=== PATIENT | female | born 1945 | race Caucasian/White ===

== ENCOUNTER 2018-07-20 10:31 | Inpatient (IN) | payer MEDICARE ==
[~2018-07-20] VITALS: Ht 165.1 cm; Wt 95.3 kg
[2018-07-20 13:00] VITALS: BP 122/50
--- NOTE | 2018-07-20 15:51 | PDOC1 ---
History and Physical Date of Admission Date of Admission DATE: 07/20/18 TIME: 15:51 Identification/Chief Complaint Chief Complaint TRANSFER FROM [facility] WITH MOD-SEVERE RUQ PAIN, INTRACTABLE NAUSEA, EMESIS , IMPROVED after transfer here, has poor appetite HAS hx gastritis, cholecystectomy CT ANGIOGRAM SUGGESTS LEFT RENAL LESION UNABLE TO TOLERATE FLUIDS OR SOLIDS Past Medical History Cardiovascular: CAD, HTN, Hyperlipidemia Pulmonary: COPD CENTRAL NERVOUS SYSTEM: Carpal Tunnel Syndrome GI: GERD, Other (DYSPHAGIA/COLON POLYP) Hepatobiliary: Cholelithiasis Musculoskeletal: Osteoarthritis Renal/: Chronic renal insuff Endocrine: Hypothyroidism Dermatology: Melanoma Past Surgical History Past Surgical History: Breast Biopsy, Cholecystectomy, Tonsillectomy Family History Family History: Cancer, Diabetes Family History: Parent Social History Smoke: <1 pack per day ALCOHOL: none Drugs: None Allergies Allergies: Coded Allergies: No Known Drug Allergies (Unverified , 07/20/18) ROS Review of System 14 PT ROS OTHERWISE NEG PSYCHOLOGICAL ROS: YES: Anxiety, Depression Eyes: No Blurry vision, No Decreased vision, No Double vision, No Dry eyes, No Excessive tearing, No Eye Pain, No Itchy Eyes, No Loss of vision, No Photophobia , No Scotomata, No Uses contacts, No Uses glasses, No Other Hematological and Lymphatic: No: Bleeding Problems, Blood Clots, Blood Transfusions, Brusing, Night Sweats, Pallor, Swollen Lymph Nodes, Other ENDOCRINE: No: Breast Changes, Galactorrhea, Hair Pattern Changes, Hot Flashes , Malaise/lethargy, Mood Swings, Palpitations, Polydipsia/polyuria, Skin Changes , Temperature Intolerance, Unexpected Weight Changes, Other Respiratory: YES: Cough Cardiovascular: No Chest Pain, No Palpitations, No Orthopnea, No Paroxysmal Noc. Dyspnea, No Edema, No Lt Headedness, No Other Gastrointestinal: Yes Nausea, Yes Vomiting, Yes Abdominal Pain Genitourinary: No Dysuria, No Frequency, No Incontinence, No Hematuria, No Retention, No Discharge, No Urgency, No Pain, No Flank Pain, No Other, No , No , No , No , No , No , No Physical Exam General: Alert, Oriented X3, Cooperative, mild distress HEENT: Atraumatic, PERRLA, EOMI Lungs: Clear to auscultation, Normal air movement Heart: S1S2, RRR Cardiovascular: S1, S2 Breasts: Not examined Abdomen: Normal bowel sounds (EPIGASTRIC TENDERNESS), Other Rectal Exam: not examined PELVIC: Examination not indicated Extremities: No clubbing, No cyanosis Skin: No breakdown Neuro: Normal speech, Strength at 5/5 X4 ext, Cranial nerves 3-12 NL Psych/Mental Status: Mental status NL, Mood NL Vitals Vitals Vital Signs Date Time Temp Pulse Resp B/P (MAP) Pulse Ox O2 Delivery O2 Flow Rate FiO2 07/20/18 13:00 97.7 73 18 122/50 (74) 93 Room Air 97.7 VTE Prophylaxis Ordered VTE Prophylaxis Devices: Yes VTE Pharmacological Prophylaxi: Yes Assessment/Plan Assessment/Plan impression 1. ruq pain 2. intractable abdominal pain 3, htn 4. hx gastritis 5. HYPOTHYROID STATE ON REPLACEMENT 6. LEFT RENAL LESION/ CYST VS MASS 7. INTRACTABLE NAUSEA 8. TOBACCO ABUSE plan 1, iv fluid support 2. iv protonix 3. GI CONSULT MAY NEED ENDOSCOPY 4. NPO 5. ABDOMINAL SONOGRAM 6. IV ZOFRAN 4 MG Q 4 HRS PRN 7. STOP TOBACCO USE NEEDED DVT PROPHYLAXIS CARLOTTA FRANK MD Jul 20, 2018 15:51
[2018-07-20] MEDS ORDERED: ACET500T68 PO (15:58)
[2018-07-20] MEDS ORDERED: ASPI81TA59 PO (15:58)
[2018-07-20] MEDS ORDERED: FURO20TA3 PO (15:59)
[2018-07-20] MEDS ORDERED: ONDANSETRON ODT 4 MG TAB.RAPDIS. PO PRN (16:00)
[2018-07-20] MEDS ORDERED: MORPHINE SULFATE 2 MG/ML VIAL. IV PRN (16:00)
[2018-07-20] MEDS ORDERED: ACETAMINOPHEN 500 MG TABLET PO PRN (16:15)
[2018-07-20] MEDS ORDERED: ONDANSETRON PF 4 MG/2 ML VIAL. IV PRN (16:30)
--- NOTE | 2018-07-20 16:36 | PDOC2 ---
GI CONSULT Reason For Consult: Abd pain > 3 months HPI: HPI: 73 y/o female who has been having abd pain for months. She saw Dr. Walsh earlier this week in his office and was admitted to [facility], then transferred here to [facility]. At [facility]: normal CBC except RDW 15.7, Cr 1.1 w/ normal BUN, normal LFTs and lipase , normal UA, neg fecal occult. D-dimer was a little elevated, no evidence of PE on CTA chest. CT A/P showed normal pancreas, left renal nodule, thickening of both adrenal glands, diverticulosis (extensive in sigmoid), moderate hiatal hernia. Pain comes and goes and is sharp, twisting, and gripping. Is starts int he epigastrium and goes to the right. Sometimes it wakes her during the night, sometimes it occurs during the day. Sometimes it makes her cough and then she starts vomiting but not always. Sometimes she can't stand up straight for awhile. H/o GERD on pantoprazole QD, some breakthrough reflux despite this. No dysphagia. Typically no diarrhea or constipation though had a loose stool yesterday. No hematemesis, hematochezia, or melena. Has gained weight though appetite has been less. S/p cholecystectomy ("it was disease"). No liver or pancreas history. No NSAIDs. Last EGD and colonoscopy by Dr. Whatley @ [facility] ~3-4 years ago, recalls being normal though at one point had colon polyps. PMH: PMH: CAD, ?CKD, fibrocystic breast disease, hypothyroidism, hysterectomy, appendectomy, tonsillectomy, lumpectomy x 3 (benign) FH: Family History: Cancer (father - pancreatic, brothers - prostate, sister - breast, aunt - unknown kind) Social History: Smoke: <1 pack per day ALCOHOL: none Drugs: None ROS: GEN: Denies fevers, chills, sweats HEENT: Denies blurred vision, sore throat CV: Denies chest pain RESP: Denies shortness of air, cough GI: Per HPI : Denies hematuria, dysuria ENDO: Denies weight changes NEURO: Denies confusion, dizziness MSK: Denies weakness, joint pain/swelling SKIN: Denies jaundice, pruritus Vitals: Vitals: Vital Signs Date Time Temp Pulse Resp B/P (MAP) Pulse Ox O2 Delivery O2 Flow Rate FiO2 07/20/18 13:00 97.7 73 18 122/50 (74) 93 Room Air 97.7 Allergies: Coded Allergies: No Known Drug Allergies (Unverified , 07/20/18) PE: GEN: NAD HEENT: Atraumatic, PERRL LUNGS: CTAB HEART: RRR ABD: NABS, S/ND, tender in epigastrium EXTREMITY: No edema SKIN: No rashes, no jaundice NEURO/PSYCH: A & O 3 A/P: A/P: Intermittent upper abd pain -twisting, sharp -occurs randomly, sometimes w/ n/v GERD -not totally controlled w/ PPI QD, last EGD 3-4 years ago w/ Dr. Whatley CRC screen, h/o polyps -says normal colonoscopy 3-4 years ago Diverticulosis S/p cholecystectomy FH pancreatic cancer -- D/w Dr. Russo - proceed w/ EGD tomorrow a.m. r/o paraesophageal hernia w/ intermittent obstruction. May need UGI, consideration for Leeanna fundoplication pending results. Agree w/ PPI. Could try clears tonight, NPO at midnight. Defer renal and adrenal findings to primary. NICOLE NEVILLE Jul 20, 2018 16:36
[2018-07-20] MEDS ORDERED: IV NORMAL SALINE 1000ML BAG 1,000 ML IV ONE (17:00)
[2018-07-20] MEDS: ALBUTEROL SULFATE 2.5 MG/3 ML NEBU. NEB SCH ×2 (17:00→20:00)
[2018-07-20] MEDS: IV 1/2 NORMAL SALINE 1,000 ML IV SCH (18:00)
[2018-07-20 19:00] VITALS: BP 107/42
[2018-07-20 23:00] VITALS: BP 94/39
[2018-07-21 03:00] VITALS: BP 121/56
[2018-07-21 05:31] LABS: BASO # 0.1 x10^3/uL (0.0-0.2); BASO % 1 % (0-3); EOS # 0.1 x10^3/uL (0.0-0.7); EOS % 2 % (0-3); HEMATOCRIT 40.3 % (36.0-47.0); HEMOGLOBIN 13.1 g/dL (12.0-15.5); LYMPH % 26 % (24-48); MEAN CORPUSCULAR HEMOGLOBIN 28 pg (25-35); MEAN CORPUSCULAR HGB CONC 33 g/dL (31-37); MEAN CORPUSCULAR VOLUME 86 fL (79-100); MONO # 0.6 x10^3/uL (0.0-1.1); MONO % 8 % (0-9); NEUT # 4.8 x10^3uL (1.8-7.7); NEUT % 63 % (31-73); PLATELET COUNT 248 x10^3/uL (140-400); RED BLOOD COUNT 4.71 x10^6/uL (3.50-5.40); RED CELL DISTRIBUTION WIDTH 15.4 % (11.5-14.5); WHITE BLOOD COUNT 7.7 x10^3/uL (4.0-11.0)
[2018-07-21 05:58] LABS: ALBUMIN 3.4 g/dL (3.4-5.0); CALCIUM 8.3 mg/dL (8.5-10.1); CREATININE 1.1 mg/dL (0.6-1.0); GFR 48.4; POTASSIUM 3.6 mmol/L (3.5-5.1); TOTAL BILIRUBIN 0.5 mg/dL (0.2-1.0); TOTAL PROTEIN 6.8 g/dL (6.4-8.2)
[2018-07-21 07:00] VITALS: BP 106/47
[2018-07-21] MEDS ORDERED: LEVOTHYROXINE 150 MCG TABLET PO SCH ×2 (07:00)
[2018-07-21] MEDS ORDERED: PANTOPRAZOLE 40 MG TABLET.DR. PO SCH (07:30)
[2018-07-21] MEDS ORDERED: PANTOPRAZOLE IV PUSH 40 MG VIAL. IVP SCH (07:30)
[2018-07-21] MEDS ORDERED: ASPIRIN CHEWABLE 81 MG TABLET. PO SCH (08:00)
[2018-07-21] MEDS: IV 1/2 NORMAL SALINE 1,000 ML IV SCH (08:19)
--- NOTE | 2018-07-21 08:23 | RAD ---
Abdominal ultrasound, 07/21/2018: HISTORY: Pain, left renal mass on CT The gallbladder is surgically absent. There is no evidence of a hepatic mass or bile duct dilatation. The visualized portions of the pancreas are unremarkable. The spleen is of normal size. There is calcific plaquing of the abdominal aorta without evidence of aneurysm. Inferior vena cava is unremarkable. No free fluid is evident in the abdomen. The kidneys are of normal size. There is a 1.6 cm hypoechoic nodule present arising from the lateral margin of the left kidney. There are faint low level internal echoes. There is a linear echogenic structure internally suggesting a small septation. There is no definite posterior acoustic enhancement or shadowing. The kidneys are otherwise unremarkable. IMPRESSION: 1. Status post cholecystectomy. 2. Small left renal nodule which is most likely a septated cyst. A solid mass cannot be excluded. MR scanning may be useful for further evaluation. Sonographic or CT surveillance would be a reasonable alternative. 3. No acute abdominal abnormality is detected. Electronically signed by: Ronnie Madera MD (07/21/2018 8:20 AM) [facility]
[2018-07-21] MEDS: ALBUTEROL SULFATE 2.5 MG/3 ML NEBU. NEB SCH ×2 (08:27→12:42)
[2018-07-21] MEDS ORDERED: buPROPion XL 150 MG TAB.ER.24H. PO SCH ×2 (09:00)
[2018-07-21] MEDS ORDERED: FUROSEMIDE 20 MG TABLET PO SCH ×2 (09:00)
[2018-07-21] MEDS ORDERED: IV RINGERS,LACTATED 1000ML 1,000 ML IV SCH (10:15)
--- NOTE | 2018-07-21 11:13 | PDOC4 ---
Operative Note Operative Note EGD with biopsy Meds propofol per anesthesia Pre-op dx abd pain s/p uyen Post-op dx gastritis s/p bx Plan advance diet and release if tolerates o/p UGi series with SBFT if able to tolerate po COSMO LOWE MD Jul 21, 2018 11:12
[2018-07-21] MEDS ORDERED: PROPOFOL 20 ML IV ONE (11:19)
[2018-07-21] MEDS ORDERED: LIDOCAINE 2% PF Vial for OR 5 ML VIAL. ONE (11:19)
--- NOTE | 2018-07-21 11:42 | PDOC ---
PROGRESS NOTES Chief Complaint Chief Complaint RUQ pain Intractable abdominal pain HTN Hx gastritis Hypothyroid states on replacement Left renal lesion Intractable nausea Tobacco use History of Present Illness History of Present Illness Pt seen and examined in EGD room post procedure Dw Dr. Russo - recommends outpt follow up Pt denies pain and nausea VSS Vitals Vitals Vital Signs Date Time Temp Pulse Resp B/P (MAP) Pulse Ox O2 Delivery O2 Flow Rate FiO2 07/21/18 11:24 66 20 116/53 93 Nasal Cannula 2 07/21/18 11:09 97.9 97.9 Physical Exam General: Alert, Oriented X3, Cooperative, No acute distress Heart: Regular rate, No murmurs Lungs: Clear Abdomen: Normal bowel sounds, No tenderness Extremities: No clubbing, No cyanosis Skin: No rashes, No breakdown Labs LABS Laboratory Tests Test 07/21/18 03:39 White Blood Count 7.7 x10^3/uL (4.0-11.0) Red Blood Count 4.71 x10^6/uL (3.50-5.40) Hemoglobin 13.1 g/dL (12.0-15.5) Hematocrit 40.3 % (36.0-47.0) Mean Corpuscular Volume 86 fL (79-100) Mean Corpuscular Hemoglobin 28 pg (25-35) Mean Corpuscular Hemoglobin Concent 33 g/dL (31-37) Red Cell Distribution Width 15.4 % (11.5-14.5) Platelet Count 248 x10^3/uL (140-400) Neutrophils (%) (Auto) 63 % (31-73) Lymphocytes (%) (Auto) 26 % (24-48) Monocytes (%) (Auto) 8 % (0-9) Eosinophils (%) (Auto) 2 % (0-3) Basophils (%) (Auto) 1 % (0-3) Neutrophils # (Auto) 4.8 x10^3uL (1.8-7.7) Lymphocytes # (Auto) 2.0 x10^3/uL (1.0-4.8) Monocytes # (Auto) 0.6 x10^3/uL (0.0-1.1) Eosinophils # (Auto) 0.1 x10^3/uL (0.0-0.7) Basophils # (Auto) 0.1 x10^3/uL (0.0-0.2) Sodium Level 142 mmol/L (136-145) Potassium Level 3.6 mmol/L (3.5-5.1) Chloride Level 107 mmol/L (98-107) Carbon Dioxide Level 27 mmol/L (21-32) Anion Gap 8 (6-14) Blood Urea Nitrogen 10 mg/dL (7-20) Creatinine 1.1 mg/dL (0.6-1.0) Estimated GFR (Cockcroft-Gault) 48.4 BUN/Creatinine Ratio 9 (6-20) Glucose Level 90 mg/dL (70-99) Calcium Level 8.3 mg/dL (8.5-10.1) Total Bilirubin 0.5 mg/dL (0.2-1.0) Aspartate Amino Transf (AST/SGOT) 7 U/L (15-37) Alanine Aminotransferase (ALT/SGPT) 15 U/L (14-59) Alkaline Phosphatase 85 U/L (46-116) Total Protein 6.8 g/dL (6.4-8.2) Albumin 3.4 g/dL (3.4-5.0) Albumin/Globulin Ratio 1.0 (1.0-1.7) Review of Systems Review of Systems Denies pain Denies nausea Assessment and Plan Assessmemt and Plan RUQ pain Intractable abdominal pain HTN Hx gastritis Hypothyroid states on replacement Left renal lesion Intractable nausea Tobacco use Plan: Home meds Advance diet Follow up outpt with GI Follow up outpt with Probable D/C to home today Comment Review of Relevant I have reviewed the following items blaise (where applicable) has been applied. Labs Laboratory Tests Test 07/21/18 03:39 White Blood Count 7.7 x10^3/uL (4.0-11.0) Red Blood Count 4.71 x10^6/uL (3.50-5.40) Hemoglobin 13.1 g/dL (12.0-15.5) Hematocrit 40.3 % (36.0-47.0) Mean Corpuscular Volume 86 fL (79-100) Mean Corpuscular Hemoglobin 28 pg (25-35) Mean Corpuscular Hemoglobin Concent 33 g/dL (31-37) Red Cell Distribution Width 15.4 % (11.5-14.5) Platelet Count 248 x10^3/uL (140-400) Neutrophils (%) (Auto) 63 % (31-73) Lymphocytes (%) (Auto) 26 % (24-48) Monocytes (%) (Auto) 8 % (0-9) Eosinophils (%) (Auto) 2 % (0-3) Basophils (%) (Auto) 1 % (0-3) Neutrophils # (Auto) 4.8 x10^3uL (1.8-7.7) Lymphocytes # (Auto) 2.0 x10^3/uL (1.0-4.8) Monocytes # (Auto) 0.6 x10^3/uL (0.0-1.1) Eosinophils # (Auto) 0.1 x10^3/uL (0.0-0.7) Basophils # (Auto) 0.1 x10^3/uL (0.0-0.2) Sodium Level 142 mmol/L (136-145) Potassium Level 3.6 mmol/L (3.5-5.1) Chloride Level 107 mmol/L (98-107) Carbon Dioxide Level 27 mmol/L (21-32) Anion Gap 8 (6-14) Blood Urea Nitrogen 10 mg/dL (7-20) Creatinine 1.1 mg/dL (0.6-1.0) Estimated GFR (Cockcroft-Gault) 48.4 BUN/Creatinine Ratio 9 (6-20) Glucose Level 90 mg/dL (70-99) Calcium Level 8.3 mg/dL (8.5-10.1) Total Bilirubin 0.5 mg/dL (0.2-1.0) Aspartate Amino Transf (AST/SGOT) 7 U/L (15-37) Alanine Aminotransferase (ALT/SGPT) 15 U/L (14-59) Alkaline Phosphatase 85 U/L (46-116) Total Protein 6.8 g/dL (6.4-8.2) Albumin 3.4 g/dL (3.4-5.0) Albumin/Globulin Ratio 1.0 (1.0-1.7) Laboratory Tests Test 07/21/18 03:39 White Blood Count 7.7 x10^3/uL (4.0-11.0) Red Blood Count 4.71 x10^6/uL (3.50-5.40) Hemoglobin 13.1 g/dL (12.0-15.5) Hematocrit 40.3 % (36.0-47.0) Mean Corpuscular Volume 86 fL (79-100) Mean Corpuscular Hemoglobin 28 pg (25-35) Mean Corpuscular Hemoglobin Concent 33 g/dL (31-37) Red Cell Distribution Width 15.4 % (11.5-14.5) Platelet Count 248 x10^3/uL (140-400) Neutrophils (%) (Auto) 63 % (31-73) Lymphocytes (%) (Auto) 26 % (24-48) Monocytes (%) (Auto) 8 % (0-9) Eosinophils (%) (Auto) 2 % (0-3) Basophils (%) (Auto) 1 % (0-3) Neutrophils # (Auto) 4.8 x10^3uL (1.8-7.7) Lymphocytes # (Auto) 2.0 x10^3/uL (1.0-4.8) Monocytes # (Auto) 0.6 x10^3/uL (0.0-1.1) Eosinophils # (Auto) 0.1 x10^3/uL (0.0-0.7) Basophils # (Auto) 0.1 x10^3/uL (0.0-0.2) Sodium Level 142 mmol/L (136-145) Potassium Level 3.6 mmol/L (3.5-5.1) Chloride Level 107 mmol/L (98-107) Carbon Dioxide Level 27 mmol/L (21-32) Anion Gap 8 (6-14) Blood Urea Nitrogen 10 mg/dL (7-20) Creatinine 1.1 mg/dL (0.6-1.0) Estimated GFR (Cockcroft-Gault) 48.4 BUN/Creatinine Ratio 9 (6-20) Glucose Level 90 mg/dL (70-99) Calcium Level 8.3 mg/dL (8.5-10.1) Total Bilirubin 0.5 mg/dL (0.2-1.0) Aspartate Amino Transf (AST/SGOT) 7 U/L (15-37) Alanine Aminotransferase (ALT/SGPT) 15 U/L (14-59) Alkaline Phosphatase 85 U/L (46-116) Total Protein 6.8 g/dL (6.4-8.2) Albumin 3.4 g/dL (3.4-5.0) Albumin/Globulin Ratio 1.0 (1.0-1.7) Medications Current Medications Furosemide (Lasix) 20 mg DAILY PO ; Start 07/21/18 at 09:00 Sodium Chloride 1,000 ml @ 75 mls/hr [id number] IV Last administered on at 08:19; Start 07/20/18 at 18:00 Levothyroxine Sodium (Synthroid) 150 mcg DAILY07 PO ; Start 07/21/18 at 07:00 Morphine Sulfate (Morphine Sulfate) 2 mg PRN Q2HR PRN IV PAIN; Start 07/20/18 at 16:00 Ondansetron HCl (Zofran Odt) 4 mg PRN Q6HRS PRN PO NAUSEA/VOMITING; Start 07/20 at 16:00 Pantoprazole Sodium (Protonix) 40 mg DAILYAC PO ; Start 07/21/18 at 07:30; Status Cancel Bupropion HCl (Wellbutrin Xl) 150 mg DAILY PO ; Start 07/21/18 at 09:00 Acetaminophen (Tylenol) 650 mg PRN Q6HRS PRN PO PAIN; Start 07/20/18 at 16:15 Aspirin (Children'S Aspirin) 81 mg DAILY08 PO ; Start 07/21/18 at 08:00 Furosemide (Lasix) 20 mg DAILY PO ; Start 07/21/18 at 09:00; Status UNV Pantoprazole Sodium (PROTONIX VIAL for IV PUSH) 40 mg DAILYAC IVP Last administered on 07/21/18at 08:23; Start 07/21/18 at 07:30 Bupropion HCl (Wellbutrin Xl) 150 mg DAILY PO ; Start 07/21/18 at 09:00; Status UNV Ondansetron HCl (Zofran) 4 mg PRN Q6HRS PRN IV NAUSEA/VOMITING; Start 07/20/18 at 16:30 Levothyroxine Sodium (Synthroid) 150 mcg DAILY07 PO ; Start 07/21/18 at 07:00; Status UNV Albuterol Sulfate (Ventolin Neb Soln) 2.5 mg RTQID NEB Last administered on at 08:27; Start 07/20/18 at 17:00 Sodium Chloride 1,000 ml @ 100 mls/hr 1X ONCE IV Last administered on at 17:00; Start 07/20/18 at 17:00; Stop 07/21/18 at 02:59; Status DC Ringer's Solution 1,000 ml @ 100 mls/hr Q10H IV Last administered on at 10:15; Start 07/21/18 at 10:15 Propofol 20 ml @ As Directed STK-MED ONCE IV ; Start 07/21/18 at 11:19; Stop at 11:20; Status DC Lidocaine HCl (Lidocaine Pf 2% Vial) 5 ml STK-MED ONCE .ROUTE ; Start 07/21/18 at 11:19; Stop 07/21/18 at 11:20; Status DC Active Scripts Active Reported Furosemide 20 Mg Tablet 20 Mg PO DAILY Children's Aspirin (Aspirin) 81 Mg Tab.chew 81 Mg PO DAILY08 Acetaminophen 500 Mg Tablet 650 Mg PO PRN Q6HRS PRN Vitals/I & O Vital Sign - Last 24 Hours 07/20/18 07/20/18 07/20/18 07/20/18 13:00 14:00 17:32 19:00 Temp 97.7 97.9 97.7 97.9 Pulse 73 79 Resp 18 18 B/P (MAP) 122/50 (74) 107/42 (63) Pulse Ox 93 96 91 O2 Delivery Room Air Room Air Room Air Room Air 07/20/18 07/20/18 07/20/18 07/21/18 20:00 20:15 23:00 03:00 Temp 98.6 97.9 98.6 97.9 Pulse 78 70 Resp 18 18 B/P (MAP) 94/39 (57) 121/56 (77) Pulse Ox 97 94 95 O2 Delivery Room Air Room Air Room Air Room Air 07/21/18 07/21/18 07/21/18 07/21/18 07:00 08:15 08:28 10:07 Temp 98.5 98.1 98.5 98.1 Pulse 71 72 Resp 18 20 B/P (MAP) 106/47 (66) Pulse Ox 93 94 O2 Delivery Room Air Room Air Room Air 07/21/18 07/21/18 07/21/18 10:09 11:09 11:24 Temp 97.9 97.9 Pulse 68 66 Resp 16 20 B/P (MAP) 133/57 116/53 Pulse Ox 98 93 O2 Delivery Room Air Simple Mask Nasal Cannula O2 Flow Rate 10 2 Intake and Output 07/20/18 07/20/18 07/21/18 15:00 23:00 07:00 Intake Total 240 ml 120 ml Output Total 300 ml Balance -60 ml 120 ml TRUDY ESQUIVEL III DO Jul 21, 2018 11:42
[2018-07-21 12:15] VITALS: BP 145/71
[2018-07-21 12:30] VITALS: BP 134/57
[2018-07-21 12:45] VITALS: BP 122/31
[2018-07-21 13:00] VITALS: BP 110/43
[2018-07-21] MEDS ORDERED: LEVO150T5 PO (13:17)
--- NOTE | 2018-07-21 19:22 | DS ---
DATE OF DISCHARGE: 07/21/2018 ADMISSION DIAGNOSIS: Abdominal pain. DISCHARGE DIAGNOSIS: Resolving abdominal pain. HOSPITAL COURSE: The patient is a pleasant 73-year-old female, who presented with abdominal pain. She was admitted. We consulted GI. She got an EGD. I saw the patient in the EGD area this morning, and Dr. Russo was just finishing up. He states that he did not see a whole lot. He did take some biopsies. He is okay with her going home. We plan to discharge her this afternoon. DISPOSITION: Home. ACTIVITY: As tolerated. DIET: Low sodium. MEDICATIONS: Please see the MRAD. TOTAL TIME ON DISCHARGE: 38 minutes. TRUDY ESQUIVEL DO DR: ED/rose JOB#: [id number] / [id number]
--- NOTE | 2018-07-25 16:08 | PATHOLOGY ---
[facility] Accession Number: [id number] . 01 Material submitted: . GASTRIC BIOPSY . 01 Clinical history: . Abdominal pain . 02 Diagnosis: Gastric biopsies: - Mild active chronic gastritis with focal intestinal metaplasia. [facility]/07/25/2018 . 02 Comment: Sections of the gastric biopsy reveal segments of gastric antral and gastroduodenal mucosa showing focal active mild chronic inflammation with focal intestinal metaplasia. A properly controlled immunoperoxidase stain for H. pylori is negative for Helicobacter organisms. There is no evidence of malignancy. (JPM:[facility] 07/25/2018) . Special stain performed: Immunoperoxidase for Helicobacter . 02 Electronically signed: . Tye Del Castillo MD, Pathologist NPI- [id number] . 01 Gross description: . Received in formalin labeled "Swindol, Jenae, gastric BX's," are 5 segments of ventura soft tissue measuring 0.9 x 0.6 x 0.2 cm in aggregate dimensions and ranging from 0.2 to 0.4 cm in maximum dimension. The specimen is submitted entirely in cassette A1. ([facility]; 07/21/2018) TOB/TOB . 02 Pathologist provided ICD-10: K29.50 . 02 CPT . 384495, [id number] Performed at: 01 [facility] [address], [place], [place] [id number] MD Jesse Chow MD Phone: [phone] Performed at: 02 [facility] [address], [place] [id number] MD Tye Del Castillo MD Phone: [phone]
== END 2018-07-21 14:10 | disposition home or self-care (01) | DRG 392 ==
LOC: 4 NORTH 13:17
PROVIDERS: ADMIT Internal Medicine; ATTEND Internal Medicine
PROC: 0DB68ZX Excision of Stomach, Via Natural or Artificial Opening Endoscopic, Diagnostic (ICD-10-PCS; principal; 2018-07-21 11:00)
DX: K29.70 Gastritis, unspecified, without bleeding (principal); K21.9 Gastro-esophageal reflux disease without esophagitis; J44.9 Chronic obstructive pulmonary disease, unspecified; E03.9 Hypothyroidism, unspecified; E78.5 Hyperlipidemia, unspecified; I12.9 Hypertensive chronic kidney disease with stage 1 through stage 4 chronic kidney disease, or unspecified chronic kidney disease; I25.10 Atherosclerotic heart disease of native coronary artery without angina pectoris; K57.30 Diverticulosis of large intestine without perforation or abscess without bleeding; G56.00 Carpal tunnel syndrome, unspecified upper limb; M19.90 Unspecified osteoarthritis, unspecified site; N18.9 Chronic kidney disease, unspecified; F17.210 Nicotine dependence, cigarettes, uncomplicated; Z90.710 Acquired absence of both cervix and uterus; Z86.010 Personal history of colon polyps; Z85.820 Personal history of malignant melanoma of skin; Z83.3 Family history of diabetes mellitus; Z90.49 Acquired absence of other specified parts of digestive tract; Z90.89 Acquired absence of other organs; Z80.0 Family history of malignant neoplasm of digestive organs; Z79.82 Long term (current) use of aspirin; Z79.899 Other long term (current) drug therapy; K57.90 Diverticulosis of intestine, part unspecified, without perforation or abscess without bleeding
CPT/HCPCS: 36415; 76700; 80053; 85025; 94640; 94760; C9113; J2001; J2704; J7030; J7120; J7613